=== PATIENT | male | born 1965 | race Caucasian/White ===

== ENCOUNTER 2018-08-07 09:10 | Inpatient (IN) | payer MEDICAID ==
[2018-08-07] MEDS: PANTOPRAZOLE IV 80 MG in SOD CHLORIDE 0.9% 100 ML IV ×2 (03:30→16:17)
[~2018-08-07 09:10] MED LIST: LIDOCAINE 2% (SDV) 5 ML INJ
[2018-08-07 09:46] LABS: ADD MAN DIFF? NO
[2018-08-07 09:47] LABS: ABNORMAL IP MESSAGE 1; BASOPHIL # 0.1 10^3/ul (0.0-0.1); BASOPHILS % 0.4 % (0.0-2.0); EOSINOPHILS # 0.1 10^3/ul (0.0-0.5); EOSINOPHILS % 1.1 % (0.0-7.0); HEMATOCRIT 18.4 % (42.0-52.0); LYMPHOCYTES # 3.5 10^3/ul (0.8-2.9); LYMPHOCYTES % 27.5 % (15.0-51.0); MEAN CORPUSCULAR HEMOGLOBIN 30.3 pg (29.0-33.0); MEAN CORPUSCULAR HGB CONC 32.1 g/dl (32.0-37.0); MEAN CORPUSCULAR VOLUME 94.4 fl (82.0-101.0); MEAN PLATELET VOLUME 10.4 fl (7.4-10.4); MONOCYTE # 1.1 10^3/ul (0.3-0.9); MONOCYTES % 8.6 % (0.0-11.0); NEUTROPHIL # 7.7 10^3/ul (1.6-7.5); NEUTROPHILS % 60.3 % (39.0-77.0); NUCLEATED RED BLOOD CELLS # 0.1 10^3/ul (0.0-0.0); NUCLEATED RED BLOOD CELLS% 0.9 /100WBC (0.0-0.0); PLATELET COUNT 170 10^3/UL (140-415); POSITIVE DIFF @See below; RED BLOOD COUNT 1.95 10^6/ul (4.70-6.10)
[2018-08-07 09:47] LABS: WHITE BLOOD COUNT 12.7 10^3/ul (4.8-10.8)
[2018-08-07 09:52] LABS: HEMOGLOBIN 5.9 g/dl (14.0-18.0); PATH REVIEW? YES
[2018-08-07] MEDS: SOD CHLORIDE 0.9% 0 ML IV (09:53)
[2018-08-07] MEDS: SOD CHLORIDE 0.9% 1,000 ML IV ×3 (10:17→12:37)
[2018-08-07 10:18] LABS: ALANINE AMINOTRANSFERASE 107 IU/L (13-69); ALBUMIN 2.8 g/dl (3.3-4.9); ALKALINE PHOSPHATASE 65 IU/L (42-121); ANION GAP 7 (5-13); ASPARTATE AMINO TRANSFERASE 81 IU/L (15-46); BILIRUBIN,INDIRECT 0.6 mg/dl (0-1.1); BILIRUBIN,TOTAL 0.6 mg/dl (0.2-1.3); BLOOD UREA NITROGEN 25 mg/dl (7-20); CALCIUM 8.2 mg/dl (8.4-10.2); CARBON DIOXIDE 24 mmol/L (21-31); CHLORIDE 107 mmol/L (97-110); CREATININE 0.62 mg/dl (0.61-1.24); Estimated GFR > 60 mL/min (>60); GLUCOSE 180 mg/dl (70-220); LIPASE 247 U/L (23-300); SODIUM 138 mmol/L (135-144); TOTAL PROTEIN 5.6 g/dl (6.1-8.1)
[2018-08-07 10:24] LABS: POTASSIUM 4.1 mmol/L (3.5-5.1)
[2018-08-07 10:29] LABS: TROPONIN-I < 0.012 ng/ml (0.000-0.120)
[2018-08-07 10:50] LABS: ADD UMIC NO; UR ASCORBIC ACID 20 mg/dL (NEGATIVE); UR BILIRUBIN (Dip) NEGATIVE (NEGATIVE); UR BLOOD (Dip) NEGATIVE (NEGATIVE); UR CLARITY CLEAR (CLEAR); UR COLOR YELLOW (YELLOW); UR GLUCOSE (Dip) NEGATIVE (NEGATIVE); UR KETONES (Dip) NEGATIVE (NEGATIVE); UR LEUKOCYTE ESTERASE (Dip) NEGATIVE Leu/ul (NEGATIVE); UR NITRITE (Dip) NEGATIVE (NEGATIVE); UR SPECIFIC GRAVITY (Dip) 1.024 (1.003-1.030); UR TOTAL PROTEIN (Dip) NEGATIVE (NEGATIVE); UR UROBILINOGEN (Dip) NEGATIVE (NEGATIVE)
[2018-08-07] MEDS ORDERED: ONDANSETRON 4 MG INJ IV (11:30)
[2018-08-07] MEDS: PANTOPRAZOLE 40 MG INJ IV (11:58)
[2018-08-07] MEDS: CEFTRIAXONE 1 GM/50 ML (PMX) 50 ML IVPB (12:02)
[2018-08-07] MEDS ORDERED: NACL 0.9% 3 ML SYG IV (13:00)
[2018-08-07 13:07] LABS: ANISOCYTOSIS 1+ (0-0); BAND NEUTROPHILS #M 0.1 10^3/ul (0.0-0.6); BAND NEUTROPHILS % (M) 1 % (0-4); EOSINOPHILS % (M) 2 % (0-7); ERYTHROBLAST% (NRBC) (M) 1 % (0-0); HYPOCHROMASIA 1+ (0-0); LYMPHOCYTES #M 3.6 10^3/ul (0.8-2.9); LYMPHOCYTES % (M) 29 % (15-51); MICROCYTOSIS 1+ (0-0); MONOCYTE #M 0.2 10^3/ul (0.3-0.9); MONOCYTES % (M) 2 % (0-11); PLATELET ESTIMATE NORMAL; POLYCHROMASIA 1+ (0-0); SEG NEUT #M 8.4 10^3/ul (1.6-7.5); SEGMENTED NEUTROPHILS (M) % 66 % (39-77)
[2018-08-07 13:32] LABS: FERRITIN 11.5 ng/ml (11.1-264.0)
[2018-08-07 13:54] LABS: IRON 22 ug/dl (35-150)
[2018-08-07 14:03] LABS: % IRON SATURATION 5 % SAT (22-52); TOTAL IRON BINDING CAPACITY 425 ug/dl (241-421)
[2018-08-07 14:06] LABS: CARCINOEMBRYONIC ANTIGEN 0.7 ng/ml (0.0-5.0)
[2018-08-07] MEDS: ACETAMINOPHEN 325 MG TAB PO (14:23)
[2018-08-07] MEDS: PROPOFOL 20 ML (16:50)
[2018-08-07] MEDS: FENTAnyl 50 MCG/ML VIAL (16:50)
[2018-08-07] MEDS: MIDAZOLAM 1 MG/ML 2 ML INJ (16:50)
[2018-08-07 19:24] LABS: HEMOGLOBIN 6.9 g/dl (14.0-18.0)
[2018-08-07 23:04] LABS: HEMATOCRIT 19.7 % (42.0-52.0)
[2018-08-07 23:07] LABS: HEMOGLOBIN 6.5 g/dl (14.0-18.0)
[2018-08-08] MEDS: PANTOPRAZOLE IV 80 MG in SOD CHLORIDE 0.9% 100 ML IV ×2 (03:38→08:56)
[2018-08-08 07:08] LABS: ADD MAN DIFF? NO
[2018-08-08 07:17] LABS: ABNORMAL IP MESSAGE 1; BASOPHILS % 0.3 % (0.0-2.0); EOSINOPHILS # 0.1 10^3/ul (0.0-0.5); HEMOGLOBIN 8.9 g/dl (14.0-18.0); LYMPHOCYTES % 30.6 % (15.0-51.0); MEAN CORPUSCULAR HEMOGLOBIN 29.8 pg (29.0-33.0); MEAN CORPUSCULAR VOLUME 90.3 fl (82.0-101.0); MEAN PLATELET VOLUME 10.5 fl (7.4-10.4); MONOCYTE # 0.6 10^3/ul (0.3-0.9); MONOCYTES % 8.7 % (0.0-11.0); NEUTROPHIL # 3.8 10^3/ul (1.6-7.5); NEUTROPHILS % 57.5 % (39.0-77.0); NUCLEATED RED BLOOD CELLS # 0.1 10^3/ul (0.0-0.0); NUCLEATED RED BLOOD CELLS% 1.2 /100WBC (0.0-0.0); PLATELET COUNT 89 10^3/UL (140-415); POSITIVE DIFF @See below; RED BLOOD COUNT 2.99 10^6/ul (4.70-6.10); RED CELL DISTRIBUTION WIDTH 14.9 % (11.5-14.5)
[2018-08-08 07:17] LABS: WHITE BLOOD COUNT 6.6 10^3/ul (4.8-10.8)
[2018-08-08 07:29] LABS: HEMOGLOBIN A1C 5.2 % (0-5.9)
[2018-08-08 07:37] LABS: INR 1.14; PROTIME 14.7 Sec (11.9-14.9); PT RATIO 1.1
[2018-08-08 07:47] LABS: ALANINE AMINOTRANSFERASE 135 IU/L (13-69); ALBUMIN 2.5 g/dl (3.3-4.9); ALBUMIN/GLOBULIN RATIO 0.86; ALKALINE PHOSPHATASE 51 IU/L (42-121); ANION GAP 6 (5-13); ASPARTATE AMINO TRANSFERASE 127 IU/L (15-46); BILIRUBIN,INDIRECT 1.1 mg/dl (0-1.1); BILIRUBIN,TOTAL 1.1 mg/dl (0.2-1.3); BLOOD UREA NITROGEN 19 mg/dl (7-20); CALCIUM 7.7 mg/dl (8.4-10.2); CARBON DIOXIDE 24 mmol/L (21-31); CHLORIDE 111 mmol/L (97-110); CHOL/HDL RATIO 3.5 RATIO; CHOLESTEROL 57 mg/dl (100-200); CREATININE 0.62 mg/dl (0.61-1.24); Estimated GFR > 60 mL/min (>60); GLUCOSE 104 mg/dl (70-220); HDL CHOLESTEROL 16 mg/dl (28-71); LDL CHOLESTEROL,CALCULATED 25 mg/dl; PHOSPHORUS 3.3 mg/dl (2.5-4.9); SODIUM 141 mmol/L (135-144); TOTAL PROTEIN 5.4 g/dl (6.1-8.1); TRIGLYCERIDES 81 mg/dl (0-149)
[2018-08-08] MEDS: SOD CHLORIDE 0.9% 1,000 ML IV ×2 (08:57→17:34)
[2018-08-08] MEDS: SOD CHLORIDE 0.9% 250 ML IV* (09:49)
[2018-08-08 10:39] LABS: HAAIG REFLEX REFLEX FILED
[2018-08-08 11:53] LABS: HEPATITIS B SURFACE ANTIGEN NEGATIVE (NEGATIVE)
[2018-08-08 12:11] LABS: HEPATITIS B CORE ANTIBODY NEGATIVE (NEGATIVE)
[2018-08-08 12:24] LABS: HEPATITIS C VIRAL ANTIBODY REACTIVE (NEGATIVE)
[2018-08-08] MEDS: PANTOPRAZOLE 40 MG INJ IV ×2 (13:29→17:34)
[2018-08-08] MEDS: PROPRANOLOL 10 MG TAB PO ×2 (13:29→21:10)
[2018-08-08] MEDS: SOD FERRIC GLUC COMPLX 125 MG in SOD CHLORIDE 0.9% 100 ML IVPB (13:29)
[2018-08-08 15:38] LABS: TYPE AND SCREEN 1
[2018-08-09] MEDS: PANTOPRAZOLE 40 MG INJ IV ×2 (05:06→18:14)
[2018-08-09] MEDS: SOD CHLORIDE 0.9% 1,000 ML IV ×2 (05:07→16:07)
[2018-08-09 06:06] LABS: ADD MAN DIFF? NO
[2018-08-09 06:37] LABS: ABNORMAL IP MESSAGE 1; BASOPHILS % 0.3 % (0.0-2.0); EOSINOPHILS # 0.2 10^3/ul (0.0-0.5); EOSINOPHILS % 2.9 % (0.0-7.0); HEMATOCRIT 24.9 % (42.0-52.0); HEMOGLOBIN 8.3 g/dl (14.0-18.0); LYMPHOCYTES # 1.9 10^3/ul (0.8-2.9); LYMPHOCYTES % 31.6 % (15.0-51.0); MEAN CORPUSCULAR HGB CONC 33.3 g/dl (32.0-37.0); MEAN CORPUSCULAR VOLUME 89.9 fl (82.0-101.0); MEAN PLATELET VOLUME 11.1 fl (7.4-10.4); MONOCYTE # 0.6 10^3/ul (0.3-0.9); MONOCYTES % 10.6 % (0.0-11.0); NEUTROPHIL # 3.2 10^3/ul (1.6-7.5); NEUTROPHILS % 54.1 % (39.0-77.0); NUCLEATED RED BLOOD CELLS% 0.3 /100WBC (0.0-0.0); PLATELET COUNT 98 10^3/UL (140-415); POSITIVE DIFF @See below; RED BLOOD COUNT 2.77 10^6/ul (4.70-6.10); RED CELL DISTRIBUTION WIDTH 15.2 % (11.5-14.5)
[2018-08-09 06:37] LABS: WHITE BLOOD COUNT 5.9 10^3/ul (4.8-10.8)
[2018-08-09 06:40] LABS: ANION GAP 4 (5-13); BLOOD UREA NITROGEN 16 mg/dl (7-20); CALCIUM 7.7 mg/dl (8.4-10.2); CARBON DIOXIDE 24 mmol/L (21-31); CHLORIDE 113 mmol/L (97-110); CREATININE 0.63 mg/dl (0.61-1.24); Estimated GFR > 60 mL/min (>60); GLUCOSE 89 mg/dl (70-220); POTASSIUM 3.9 mmol/L (3.5-5.1); SODIUM 141 mmol/L (135-144)
[2018-08-09] MEDS: PROPRANOLOL 10 MG TAB PO ×2 (08:51→21:18)
[2018-08-09] MEDS: SOD FERRIC GLUC COMPLX 125 MG in SOD CHLORIDE 0.9% 100 ML IVPB (13:23)
[2018-08-09] MEDS: SUCRALFATE (100 MG/ML) 10ML CUP PO ×3 (15:08→21:18)
[2018-08-10] MEDS: SOD CHLORIDE 0.9% 1,000 ML IV ×2 (01:01→10:37)
[2018-08-10 05:54] LABS: ADD MAN DIFF? NO
[2018-08-10 06:01] LABS: WHITE BLOOD COUNT 6.8 10^3/ul (4.8-10.8)
[2018-08-10 06:01] LABS: ABNORMAL IP MESSAGE 1; BASOPHILS % 0.3 % (0.0-2.0); EOSINOPHILS # 0.2 10^3/ul (0.0-0.5); EOSINOPHILS % 2.3 % (0.0-7.0); HEMATOCRIT 23.6 % (42.0-52.0); HEMOGLOBIN 7.5 g/dl (14.0-18.0); LYMPHOCYTES # 2.2 10^3/ul (0.8-2.9); LYMPHOCYTES % 32.8 % (15.0-51.0); MEAN CORPUSCULAR HEMOGLOBIN 29.3 pg (29.0-33.0); MEAN CORPUSCULAR HGB CONC 31.8 g/dl (32.0-37.0); MEAN CORPUSCULAR VOLUME 92.2 fl (82.0-101.0); MEAN PLATELET VOLUME 11.3 fl (7.4-10.4); MONOCYTE # 0.8 10^3/ul (0.3-0.9); MONOCYTES % 11.4 % (0.0-11.0); NEUTROPHIL # 3.6 10^3/ul (1.6-7.5); NEUTROPHILS % 52.6 % (39.0-77.0); PLATELET COUNT 98 10^3/UL (140-415); POSITIVE DIFF @See below; RED BLOOD COUNT 2.56 10^6/ul (4.70-6.10); RED CELL DISTRIBUTION WIDTH 15.5 % (11.5-14.5)
[2018-08-10] MEDS: PANTOPRAZOLE 40 MG INJ IV ×2 (06:05→17:05)
[2018-08-10 06:29] LABS: ALANINE AMINOTRANSFERASE 168 IU/L (13-69); ALBUMIN 2.1 g/dl (3.3-4.9); ALBUMIN/GLOBULIN RATIO 0.84; ALKALINE PHOSPHATASE 44 IU/L (42-121); ANION GAP 7 (5-13); ASPARTATE AMINO TRANSFERASE 162 IU/L (15-46); BILIRUBIN,INDIRECT 0.8 mg/dl (0-1.1); BILIRUBIN,TOTAL 0.8 mg/dl (0.2-1.3); BLOOD UREA NITROGEN 16 mg/dl (7-20); CALCIUM 7.6 mg/dl (8.4-10.2); CARBON DIOXIDE 21 mmol/L (21-31); CHLORIDE 115 mmol/L (97-110); CREATININE 0.64 mg/dl (0.61-1.24); Estimated GFR > 60 mL/min (>60); GLUCOSE 83 mg/dl (70-220); POTASSIUM 3.6 mmol/L (3.5-5.1); SODIUM 143 mmol/L (135-144); TOTAL PROTEIN 4.6 g/dl (6.1-8.1)
[2018-08-10 06:57] LABS: IMMEDIATE SPIN CROSSMATCH 1 6
[2018-08-10] MEDS: PROPRANOLOL 10 MG TAB PO ×2 (08:57→20:22)
[2018-08-10] MEDS: SUCRALFATE (100 MG/ML) 10ML CUP PO ×4 (08:57→20:23)
[2018-08-10] MEDS: FUROSEMIDE 20 MG INJ IV (12:48)
[2018-08-10] MEDS: SOD FERRIC GLUC COMPLX 125 MG in SOD CHLORIDE 0.9% 100 ML IVPB (13:35)
[2018-08-10] MEDS: FLUTICASONE 0.05% 16 GM NAS SPRAY NASAL (17:19)
[2018-08-11 05:54] LABS: ADD MAN DIFF? NO
[2018-08-11 06:01] LABS: WHITE BLOOD COUNT 8.4 10^3/ul (4.8-10.8)
[2018-08-11 06:01] LABS: BASOPHILS % 0.2 % (0.0-2.0); EOSINOPHILS # 0.2 10^3/ul (0.0-0.5); EOSINOPHILS % 2.1 % (0.0-7.0); HEMATOCRIT 23.5 % (42.0-52.0); HEMOGLOBIN 7.7 g/dl (14.0-18.0); LYMPHOCYTES # 2.1 10^3/ul (0.8-2.9); LYMPHOCYTES % 25.5 % (15.0-51.0); MEAN CORPUSCULAR HGB CONC 32.8 g/dl (32.0-37.0); MEAN CORPUSCULAR VOLUME 91.4 fl (82.0-101.0); MEAN PLATELET VOLUME 11.5 fl (7.4-10.4); MONOCYTE # 1.1 10^3/ul (0.3-0.9); MONOCYTES % 12.6 % (0.0-11.0); NEUTROPHIL # 4.9 10^3/ul (1.6-7.5); NEUTROPHILS % 58.8 % (39.0-77.0); PLATELET COUNT 107 10^3/UL (140-415); RED BLOOD COUNT 2.57 10^6/ul (4.70-6.10); RED CELL DISTRIBUTION WIDTH 15.3 % (11.5-14.5)
[2018-08-11] MEDS: PANTOPRAZOLE 40 MG INJ IV ×2 (06:15→17:59)
[2018-08-11 06:55] LABS: ANION GAP 3 (5-13); BLOOD UREA NITROGEN 22 mg/dl (7-20); CALCIUM 7.7 mg/dl (8.4-10.2); CARBON DIOXIDE 25 mmol/L (21-31); CHLORIDE 110 mmol/L (97-110); CREATININE 0.66 mg/dl (0.61-1.24); Estimated GFR > 60 mL/min (>60); GLUCOSE 101 mg/dl (70-220); POTASSIUM 3.6 mmol/L (3.5-5.1); SODIUM 138 mmol/L (135-144)
[2018-08-11] MEDS: SUCRALFATE (100 MG/ML) 10ML CUP PO ×4 (09:36→21:36)
[2018-08-11] MEDS: PROPRANOLOL 10 MG TAB PO ×2 (09:37→21:36)
[2018-08-11] MEDS: ACETAMINOPHEN 325 MG TAB PO (10:46)
[2018-08-11] MEDS: IBUPROFEN 600 MG TAB PO ×2 (13:01→18:00)
[2018-08-11] MEDS: SOD FERRIC GLUC COMPLX 125 MG in SOD CHLORIDE 0.9% 100 ML IVPB (13:01)
[2018-08-12] MEDS: IBUPROFEN 600 MG TAB PO ×2 (00:27→06:00)
[2018-08-12] MEDS: PANTOPRAZOLE 40 MG INJ IV ×2 (06:02→18:12)
[2018-08-12 06:30] LABS: ABNORMAL IP MESSAGE 1; HEMATOCRIT 16.6 % (42.0-52.0); MEAN CORPUSCULAR HEMOGLOBIN 30.7 pg (29.0-33.0); MEAN CORPUSCULAR HGB CONC 32.5 g/dl (32.0-37.0); MEAN CORPUSCULAR VOLUME 94.3 fl (82.0-101.0); MEAN PLATELET VOLUME 11.5 fl (7.4-10.4); NUCLEATED RED BLOOD CELLS% 0.2 /100WBC (0.0-0.0); PLATELET COUNT 120 10^3/UL (140-415); POSITIVE DIFF @See below; RED BLOOD COUNT 1.76 10^6/ul (4.70-6.10); RED CELL DISTRIBUTION WIDTH 17.1 % (11.5-14.5)
[2018-08-12 06:30] LABS: WHITE BLOOD COUNT 11.3 10^3/ul (4.8-10.8)
[2018-08-12 06:58] LABS: ANION GAP 2 (5-13); BLOOD UREA NITROGEN 28 mg/dl (7-20); CALCIUM 7.5 mg/dl (8.4-10.2); CARBON DIOXIDE 27 mmol/L (21-31); CHLORIDE 109 mmol/L (97-110); CREATININE 0.75 mg/dl (0.61-1.24); Estimated GFR > 60 mL/min (>60); GLUCOSE 97 mg/dl (70-220); POTASSIUM 3.9 mmol/L (3.5-5.1); SODIUM 138 mmol/L (135-144)
[2018-08-12] MEDS ORDERED: PROPOFOL 200 MG INJ (07:00)
[2018-08-12 07:18] LABS: HEMOGLOBIN 5.4 g/dl (14.0-18.0)
[2018-08-12 07:19] LABS: ADD MAN DIFF? YES
[2018-08-12] MEDS: SOD CHLORIDE 0.9% 250 ML IV* (07:45)
[2018-08-12] MEDS: SUCRALFATE (100 MG/ML) 10ML CUP PO ×4 (08:00→20:39)
[2018-08-12] MEDS: PROPRANOLOL 10 MG TAB PO ×2 (08:00→20:39)
[2018-08-12 08:30] LABS: ALPHA FETOPROTEIN 4.16 IU/L (0.00-7.21)
[2018-08-12] MEDS ORDERED: FUROSEMIDE (10 MG/ML) IV SYG IV (09:00)
[2018-08-12 09:09] LABS: ANISOCYTOSIS 2+ (0-0); BAND NEUTROPHILS #M 0.5 10^3/ul (0.0-0.6); BAND NEUTROPHILS % (M) 5 % (0-4); BASOPHIL #M 0.1 10^3/ul (0.0-0.0); BASOPHILS % (M) 1 % (0-2); BURR CELLS 1+ (0-0); EOSINOPHILS % (M) 2 % (0-7); ERYTHROBLAST% (NRBC) (M) 1 % (0-0); GIANT THROMBO% (M) 3 % (0-0); LYMPHOCYTES #M 1.5 10^3/ul (0.8-2.9); LYMPHOCYTES % (M) 14 % (15-51); MICROCYTOSIS 1+ (0-0); MONOCYTE #M 0.6 10^3/ul (0.3-0.9); MONOCYTES % (M) 6 % (0-11); PLATELET ESTIMATE DECREASED; POLYCHROMASIA 3+ (0-0); SEG NEUT #M 8.2 10^3/ul (1.6-7.5); SEGMENTED NEUTROPHILS (M) % 72 % (39-77); SMUDGE%M 7 % (0-0); TARGET CELLS 1+ (0-0)
[2018-08-12] MEDS: SOD CHLORIDE 0.9% 1,000 ML IV ×2 (09:20→16:19)
[2018-08-12 09:51] LABS: IMMEDIATE SPIN CROSSMATCH 1 3
[2018-08-12 10:07] LABS: HEMATOCRIT 16.8 % (42.0-52.0)
[2018-08-12 10:08] LABS: PLATELET COUNT 167 10^3/UL (140-415)
[2018-08-12 10:13] LABS: HEMOGLOBIN 5.3 g/dl (14.0-18.0)
[2018-08-12 10:29] LABS: INR 1.19; PROTIME 15.2 Sec (11.9-14.9); PT RATIO 1.2
[2018-08-12 10:30] LABS: PARTIAL THROMBOPLASTIN TIME 33.9 Sec (23.0-35.0)
[2018-08-12] MEDS ORDERED: ACETAMINOPHEN 325 MG TAB PO (10:30)
[2018-08-12] MEDS: ONDANSETRON 4 MG INJ IV (10:46)
[2018-08-12 11:36] LABS: THROMBIN TIME 15.1 SEC (13.8-19.1)
[2018-08-12] MEDS: FUROSEMIDE 40 MG INJ IV (12:41)
[2018-08-12] MEDS: PROPOFOL 60 ML (16:54)
[2018-08-12] MEDS: LIDOCAINE 2% (SDV) 5 ML INJ (16:55)
[2018-08-12] MEDS ORDERED: EPHEDrine SULFATE 50 MG/5 ML SYG IV (17:00)
[2018-08-12] MEDS ORDERED: ONDANSETRON 4 MG INJ IV (17:00)
[2018-08-12] MEDS ORDERED: hydrALAzine 20 MG INJ IV (17:00)
[2018-08-12] MEDS ORDERED: LABETALOL HCL 20MG INJ IV (17:00)
[2018-08-12] MEDS ORDERED: FENTAnyl 50 MCG/ML VIAL IV (17:00)
[2018-08-12] MEDS: FENTAnyl 50 MCG/ML VIAL IV ×3 (17:27→19:36)
[2018-08-12 18:26] LABS: HEMATOCRIT 24.6 % (42.0-52.0)
[2018-08-12] MEDS: morphine 2 MG INJ IV (19:13)
[2018-08-13 01:05] LABS: HEMATOCRIT 21.3 % (42.0-52.0)
[2018-08-13] MEDS: SOD CHLORIDE 0.9% 1,000 ML IV ×2 (01:08→08:07)
[2018-08-13 01:15] LABS: HEMOGLOBIN 6.9 g/dl (14.0-18.0)
[2018-08-13] MEDS: PANTOPRAZOLE 40 MG INJ IV ×2 (05:16→17:17)
[2018-08-13 06:41] LABS: ADD MAN DIFF? NO
[2018-08-13 07:13] LABS: ANION GAP 2 (5-13); BLOOD UREA NITROGEN 22 mg/dl (7-20); CALCIUM 7.4 mg/dl (8.4-10.2); CARBON DIOXIDE 24 mmol/L (21-31); CHLORIDE 109 mmol/L (97-110); CREATININE 0.63 mg/dl (0.61-1.24); Estimated GFR > 60 mL/min (>60); GLUCOSE 104 mg/dl (70-220); POTASSIUM 4.1 mmol/L (3.5-5.1); SODIUM 135 mmol/L (135-144)
[2018-08-13 08:03] LABS: BASOPHIL # 0.1 10^3/ul (0.0-0.1); BASOPHILS % 0.4 % (0.0-2.0); EOSINOPHILS # 0.2 10^3/ul (0.0-0.5); EOSINOPHILS % 1.8 % (0.0-7.0); HEMATOCRIT 26.3 % (42.0-52.0); HEMOGLOBIN 8.5 g/dl (14.0-18.0); LYMPHOCYTES % 22.8 % (15.0-51.0); MEAN CORPUSCULAR HGB CONC 32.3 g/dl (32.0-37.0); MEAN CORPUSCULAR VOLUME 92.9 fl (82.0-101.0); MEAN PLATELET VOLUME 10.8 fl (7.4-10.4); MONOCYTE # 1.5 10^3/ul (0.3-0.9); MONOCYTES % 11.2 % (0.0-11.0); NEUTROPHILS % 61.1 % (39.0-77.0); NUCLEATED RED BLOOD CELLS # 0.2 10^3/ul (0.0-0.0); NUCLEATED RED BLOOD CELLS% 1.5 /100WBC (0.0-0.0); PLATELET COUNT 145 10^3/UL (140-415); RED BLOOD COUNT 2.83 10^6/ul (4.70-6.10); RED CELL DISTRIBUTION WIDTH 17.4 % (11.5-14.5)
[2018-08-13 08:03] LABS: WHITE BLOOD COUNT 13.1 10^3/ul (4.8-10.8)
[2018-08-13] MEDS: PROPRANOLOL 10 MG TAB PO ×2 (08:06→20:30)
[2018-08-13] MEDS: SUCRALFATE (100 MG/ML) 10ML CUP PO ×4 (08:06→20:31)
[2018-08-13 17:10] LABS: HEMATOCRIT 27.2 % (42.0-52.0); HEMOGLOBIN 8.8 g/dl (14.0-18.0)
[2018-08-13] MEDS: IOHEXOL 300MG/ML 150 ML BTL (21:10)
[2018-08-13] MEDS: SOD CHLORIDE 0.9% 100 ML (21:10)
[2018-08-14 01:24] LABS: HEMOGLOBIN 7.7 g/dl (14.0-18.0)
[2018-08-14] MEDS: PANTOPRAZOLE 40 MG INJ IV (05:46)
[2018-08-14 06:21] LABS: ADD MAN DIFF? NO
[2018-08-14 06:23] LABS: WHITE BLOOD COUNT 8.9 10^3/ul (4.8-10.8)
[2018-08-14 06:23] LABS: BASOPHILS % 0.2 % (0.0-2.0); EOSINOPHILS # 0.3 10^3/ul (0.0-0.5); EOSINOPHILS % 2.9 % (0.0-7.0); HEMATOCRIT 26.8 % (42.0-52.0); HEMOGLOBIN 8.3 g/dl (14.0-18.0); LYMPHOCYTES # 2.4 10^3/ul (0.8-2.9); MEAN CORPUSCULAR HEMOGLOBIN 29.4 pg (29.0-33.0); MEAN PLATELET VOLUME 11.5 fl (7.4-10.4); MONOCYTE # 0.9 10^3/ul (0.3-0.9); MONOCYTES % 10.5 % (0.0-11.0); NEUTROPHIL # 5.2 10^3/ul (1.6-7.5); NEUTROPHILS % 57.8 % (39.0-77.0); NUCLEATED RED BLOOD CELLS # 0.1 10^3/ul (0.0-0.0); NUCLEATED RED BLOOD CELLS% 0.9 /100WBC (0.0-0.0); PLATELET COUNT 111 10^3/UL (140-415); RED BLOOD COUNT 2.82 10^6/ul (4.70-6.10); RED CELL DISTRIBUTION WIDTH 18.5 % (11.5-14.5)
[2018-08-14 07:09] LABS: ALANINE AMINOTRANSFERASE 85 IU/L (13-69); ALBUMIN 2.1 g/dl (3.3-4.9); ALBUMIN/GLOBULIN RATIO 0.77; ALKALINE PHOSPHATASE 40 IU/L (42-121); ANION GAP 6 (5-13); ASPARTATE AMINO TRANSFERASE 79 IU/L (15-46); BILIRUBIN,INDIRECT 1.2 mg/dl (0-1.1); BILIRUBIN,TOTAL 1.2 mg/dl (0.2-1.3); BLOOD UREA NITROGEN 14 mg/dl (7-20); CALCIUM 7.3 mg/dl (8.4-10.2); CARBON DIOXIDE 23 mmol/L (21-31); CHLORIDE 107 mmol/L (97-110); CREATININE 0.61 mg/dl (0.61-1.24); Estimated GFR > 60 mL/min (>60); GLUCOSE 89 mg/dl (70-220); SODIUM 136 mmol/L (135-144); TOTAL PROTEIN 4.8 g/dl (6.1-8.1)
[2018-08-14] MEDS: SUCRALFATE (100 MG/ML) 10ML CUP PO (07:41)
[2018-08-14] MEDS: PROPRANOLOL 10 MG TAB PO (07:41)
== END 2018-08-14 11:51 | disposition home or self-care (01) | DRG 377 ==
LOC: E/R 09:10 → TEL 11:07
PROC: 06L38CZ Occlusion of Esophageal Vein with Extraluminal Device, Via Natural or Artificial Opening Endoscopic (ICD-10-PCS; principal; 2018-08-07 16:00)
PROC: 30233N1 Transfusion of Nonautologous Red Blood Cells into Peripheral Vein, Percutaneous Approach (ICD-10-PCS; 2018-08-07 16:00)
PROC: 30233R1 Transfusion of Nonautologous Platelets into Peripheral Vein, Percutaneous Approach (ICD-10-PCS; 2018-08-07 16:00)
PROC: 0DJ08ZZ Inspection of Upper Intestinal Tract, Via Natural or Artificial Opening Endoscopic (ICD-10-PCS; 2018-08-07 16:00)
DX: K29.21 Alcoholic gastritis with bleeding (principal); I85.11 Secondary esophageal varices with bleeding; D62 Acute posthemorrhagic anemia; T82.898A Other specified complication of vascular prosthetic devices, implants and grafts, initial encounter; R65.10 Systemic inflammatory response syndrome (SIRS) of non-infectious origin without acute organ dysfunction; K70.9 Alcoholic liver disease, unspecified; K92.1 Melena; I85.10 Secondary esophageal varices without bleeding; K70.30 Alcoholic cirrhosis of liver without ascites; D72.829 Elevated white blood cell count, unspecified; R79.89 Other specified abnormal findings of blood chemistry; F10.10 Alcohol abuse, uncomplicated; D69.6 Thrombocytopenia, unspecified; F10.20 Alcohol dependence, uncomplicated; D63.8 Anemia in other chronic diseases classified elsewhere; B19.20 Unspecified viral hepatitis C without hepatic coma
CPT/HCPCS: 36415; 36430; 71045; 74160; 76705; 80048; 80053; 80061; 81003; 82105; 82378; 82728; 83036; 83540; 83690; 83735; 84100; 84484; 85014; 85018; 85025; 85049; 85610; 85670; 85730; 86704; 86709; 86803; 86850; 86900; 86901; 86920; 87340; 93005; 93971; 99291-25

== ENCOUNTER → 2019-01-04 | Emergency (ER) | payer MEDICAID ==
[2019-01-04 16:29] LABS: ADD MAN DIFF? NO
[2019-01-04 16:33] LABS: ABNORMAL IP MESSAGE 1; BASOPHILS % 0.4 % (0.0-2.0); EOSINOPHILS # 0.1 10^3/ul (0.0-0.5); EOSINOPHILS % 2.4 % (0.0-7.0); HEMATOCRIT 25.1 % (42.0-52.0); HEMOGLOBIN 7.2 g/dl (14.0-18.0); LYMPHOCYTES # 1.5 10^3/ul (0.8-2.9); LYMPHOCYTES % 32.2 % (15.0-51.0); MEAN CORPUSCULAR HEMOGLOBIN 19.1 pg (29.0-33.0); MEAN CORPUSCULAR HGB CONC 28.7 g/dl (32.0-37.0); MEAN CORPUSCULAR VOLUME 66.8 fl (82.0-101.0); MEAN PLATELET VOLUME 9.8 fl (7.4-10.4); MONOCYTE # 0.6 10^3/ul (0.3-0.9); MONOCYTES % 13.5 % (0.0-11.0); NEUTROPHIL # 2.4 10^3/ul (1.6-7.5); NEUTROPHILS % 51.3 % (39.0-77.0); PLATELET COUNT 101 10^3/UL (140-415); POSITIVE DIFF @See below; RED BLOOD COUNT 3.76 10^6/ul (4.70-6.10); RED CELL DISTRIBUTION WIDTH 20.7 % (11.5-14.5)
[2019-01-04 16:33] LABS: WHITE BLOOD COUNT 4.6 10^3/ul (4.8-10.8)
[2019-01-04] MEDS: FAMOTIDINE 20 MG INJ IV (16:33)
[2019-01-04] MEDS: LACTATED RINGER'S 1,000 ML IV (16:34)
[2019-01-04 16:52] LABS: ALANINE AMINOTRANSFERASE 80 IU/L (13-69); ALBUMIN 3.6 g/dl (3.3-4.9); ALBUMIN/GLOBULIN RATIO 1.02; ALKALINE PHOSPHATASE 76 IU/L (42-121); ANION GAP 8 (5-13); ASPARTATE AMINO TRANSFERASE 68 IU/L (15-46); BILIRUBIN,INDIRECT 1.1 mg/dl (0-1.1); BILIRUBIN,TOTAL 1.1 mg/dl (0.2-1.3); BLOOD UREA NITROGEN 23 mg/dl (7-20); CALCIUM 8.7 mg/dl (8.4-10.2); CARBON DIOXIDE 25 mmol/L (21-31); CHLORIDE 110 mmol/L (97-110); CREATININE 0.89 mg/dl (0.61-1.24); Estimated GFR > 60 mL/min (>60); GLUCOSE 87 mg/dl (70-220); INR 1.14; POTASSIUM 4.1 mmol/L (3.5-5.1); PROTIME 14.7 Sec (11.9-14.9); PT RATIO 1.1; SODIUM 143 mmol/L (135-144); TOTAL PROTEIN 7.1 g/dl (6.1-8.1)
[2019-01-04 16:53] LABS: PARTIAL THROMBOPLASTIN TIME 29.7 Sec (23.0-35.0)
[2019-01-04 17:03] LABS: TROPONIN-I < 0.012 ng/ml (0.000-0.120)
== END | disposition home or self-care (01) ==
LOC: E/R 15:37
DX: R19.5 Other fecal abnormalities (principal); R53.1 Weakness
CPT/HCPCS: 36415; 80053; 84484; 85025; 85610; 85730; 86850; 86900; 86901; 93005; 96374; 99284-25